=== PATIENT | male | born 1985 | race Two or more races ===

== ENCOUNTER 2025-06-02 08:10 | Emergency (ER) | payer MEDICAID ==
[~2025-06-02] VITALS: Ht 175.3 cm; Wt 91.7 kg
--- NOTE | 2025-06-02 09:32 | ED.PDOC ---
Psychiatric Chief Complaint: Anxiety Comments 39 y/o M, presents to the ED for CC of anxiety. Patient states, he has been experiencing intermittent episodes of chest discomfort along with shortness of breath [id number]. Patient reports symptoms worsening today (06/02/25), with feelings of anxiety. Patient comments, that prior to symptoms commencing to have smoked marijuana; endorses daily usage. Patient denies nausea, vomiting, abdominal pain, irritability, or palpitations. No other symptoms or modifying factors are present at this time. Time Seen by MD: 09:20 Reviewed Notes: Nurses Notes, Medications, Allergies Information Source: Patient Mode of Arrival: Ambulatory Severity: Able to Care for Self Severity of Pain: None Severity of Mental Status: None Severity of Symptoms: Moderate Timing: Days Duration: Intermittent Presents with: Anxiety Quality: None Associated signs and symptoms: Anxiety Past Medical History PAST MEDICAL HISTORY: Denies Surgical History: Denies all surgeries Family History Family History: Unknown Social History Smoker: Non-Smoker Alcohol: Denies ETOH Use Drugs: Marijuana Lives In: Home Constitutional: denies: chills, diaphoresis, fatigue, fever, malaise, sweats, weakness, others EENTM: denies: blurred vision, double vision, ear bleeding, ear discharge, ear drainage, ear pain, ear ringing, eye pain, eye redness, hearing loss, mouth pain, mouth swelling, nasal discharge, nose bleeding, nose congestion, nose pain, photophobia, tearing, throat pain, throat swelling, voice changes, others Respiratory: denies: cough, hemoptysis, orthopnea, SOB at rest, shortness of breath, SOB with excertion, stridor, wheezing, others Cardiovascular: denies: chest pain, dizzy spells, diaphoresis, Dyspnea on exertion, edema, irregular heart beat, left arm pain, lightheadedness, palpit ations, PND, syncope, others Gastrointestinal: denies: abdomen distended, abdominal pain, blood streaked b owels, constipated, diarrhea, dysphagia, difficulty swallowing, hematemesis, melena, nausea, poor appetite, poor fluid intake, rectal bleeding, rectal pain, vomiting, others Genitourinary: denies: burning, dysuria, flank pain, frequency, hematuria, incontinence, penile discharge, penile sore, pain, testicle pain, testicle swelling, urgency, others Neurological: denies: dizziness, fainting, headache, left sided numbness, left sided weakness, numbness, paresthesia, pre-existing deficit, right sided numbness, right sided weakness, seizure, speech problems, tingling, tremors, weakness, others Musculoskeletal: denies: back pain, gout, joint pain, joint swelling, muscle pain, muscle stiffness, neck pain, others Integumetry: denies: bruises, change in color, change in hair/nails, dryness, laceration, lesions, lumps, rash, wounds, others Allergic/Immunocompromised: denies: Difficulty Healing, Frequent Infections, Hives, Itching, others Hematologic/Lymphatic: denies: anemia, blood clots, easy bleeding, easy bruisi ng, swollen glands, others Endocrine: denies: excessive hunger, excessive sweating, excessive thirst, exce ssive urination, flushing, intolerance to cold, intolerance to heat, unexplained weight gain, unexplained weight loss, others Psychiatric: reports: anxiety; denies: bipolar disorder, depression, hopeless, panic disorder, schizophrenia, sleepless, suicidal, others All Other Systems: Reviewed and Negative Physical Exam General Appearance: No Apparent Distress, Normal HEENT: Normal ENT Inspection, Pharynx Normal, TMs Normal Neck: Full Range of Motion, Non-Tender, Normal, Normal Inspection Respiratory: Chest Non-Tender, Lungs Clear, No Accessory Muscle Use, No Respiratory Distress, Normal Breath Sounds Cardiovascular: No Edema, No JVD, No Murmur, No Gallop, Normal Peripheral Pulses, Regular Rate/Rhythm Breast Exam: Deferred Gastrointestinal: No Organomegaly, Non Tender, No Pulsatile Mass, Normal Bowel Sounds, Soft Genitalia: Deferred Pelvic: Deferred Rectal: Deferred Extremities: No calf tenderness, Normal capillary refill, Normal inspection, Normal range of motion, Non-tender, No pedal edema Musculoskeletal : Apperance: Normal Neurologic: Alert, 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 No AV block, Brugada, prolonged QTC, delta waves, nor epsilon waves. Was a procedure done? Was a procedure done?: No Psych Differential Dx Psych. Differential Dx: Anxiety X-Ray, Labs, Meds, VS Vital Signs Date Time Temp Pulse Resp B/P (MAP) Pulse Ox O2 Delivery O2 Flow Rate FiO2 06/02/25 11:26 98.0 79 20 133/89 (104) 98 98.0 06/02/25 08:36 97.9 104 22 137/100 (112) 100 97.9 06/02/25 08:12 97.8 135 24 130/93 97 97.8 Lab Test 06/02/25 09:16 Range/Units POC Glucose 129 H 70-106 mg/dl X-Ray, Labs, Meds, VS Comment 39-year-old male here today with a presentation consistent with a anxiety/hyperventilation. Vital signs stable, afebrile. Physical exam without any acute findings. EKG overall reassuring without evidence of AV block, Brugada, prolonged QTC, delta waves, epsilon waves, nor acute ischemia. Patient was provided with reassurance and instructed to follow up with the primary care provider for further re-evaluation within 2-3 days. Return precautions discussed. Patient was discharged in stable condition ambulating with a steady gait and in no distress. Time of 1ST Reevaluation: 09:50 Reevaluation 1ST: Unchanged Time of 2ND Reevaluation: 12:49 Reevaluation 2ND: Resolved Patient Education/Counseling: Diagnosis, Treatment Family Education/Counseling: No Family Present Departure 1 Departure Time of Disposition: 12:55 Impression: Primary Impression: Anxiety Additional Impressions: Dizziness Marijuana use Disposition: 01 HOME / SELF CARE / HOMELESS Condition: Stable Discharged With: Self, Relative (Sibling) Critical Care Note Critical Care Time?: No Stability Stability form required: No Heart Score Heart Score: Heart Score Response (Comments) Value History N/A 0 EKG N/A 0 Age N/A 0 Risk Factors N/A 0 Troponin N/A 0 Total 0 I personally scribed for ELENA CAROLINA MD ([email or web address]) on 06/02/25 at 09:31. Electronically submitted by Cara Prabhakar ([email or web address]). I personally scribed for ELENA CAROLINA MD ([email or web address]) on 06/02/25 at 10:03. Electronically submitted by Cara Prabhakar ([email or web address]). ELENA CAROLINA MD Jun 02, 2025 09:31 KONRAD ROTH MD Jun 02, 2025 12:56
[2025-06-02 11:26] VITALS: BP 133/89; RESP 20; TEMP 98; O2SAT 98
--- NOTE | 2025-06-02 12:52 | ECG ---
[facility] Test Date: 2025-06-02 Test Time: 12:51:40 Pat Name: ELADIA PEPE Department: ER Room: Gender: M [employer]el Helper: CHEMO : 1985 Requested By: KONRAD ROTH Order Number: [id number] Reading MD: Aidan Webster Measurements Intervals [employer] Rate: 73 P: 28 MA: 117 QRS: 15 QRSD: 88 T: 5 QT: 397 QTc: 438 Interpretive Statements Sinus rhythm Borderline short MA interval Posterior infarct, old Electronically Signed On 06-04-2025 20:03:23 PST by Aidan Webster Please click the below link to view image of tracing.
[2025-06-02 12:56] VITALS: PULSE 73
== END 2025-06-02 13:11 | disposition home or self-care (01) ==
LOC: ER 08:10
DX: F41.9 Anxiety disorder, unspecified (principal); F12.90 Cannabis use, unspecified, uncomplicated; R42 Dizziness and giddiness
CPT/HCPCS: 82947; 82962; 93005